=== PATIENT | female | born 1955 | race Caucasian/White ===

== ENCOUNTER → 2017-12-30 | Outpatient (CLI) | payer OTHER ==
[~2017-12-30] MED LIST: ACETAMINOPHEN325 M1 PO; AMBIEN 10 MG TA10 MG PO; ARIXTRA; ASPIR 8181 MG PO; ASPIRIN325; BIOTIN1000 MCG PO; CALCIUM-VITAMIN D PO; CARAFATE 1 GM TA1 GM PO; CELEBREX 200 M200 M1; CELEBREX 200 M200 M1 PO; CENTRUM SILVER1 EAC4 PO; COLACE100 MG; CRESTOR10 MG PO; GLUCOPHAGE XR500 MG PO; JANUMET 50-1,01 EACH PO; LIPITOR 20 MG T20 M1 PO; MAGNESIUM250 M1 PO; MELATONIN10 MG PO; MELATONIN5 M1 PO; NEURONTIN 300300 M1; OMEGA-31000 M1 PO; OXYIR5 MG; PEPCID20 MG PO; PERCOCET 5-3251 EACH; POTASSIUM CHLORIDE PO; PREVACID30 MG PO; TRILIPIX135 MG PO; VITAMINC500 PO
== END ==
LOC: M.RAD 14:41
DX: Z12.31 Encounter for screening mammogram for malignant neoplasm of breast (principal)

== ENCOUNTER 2018-02-21 00:53 | Emergency (ER) | payer OTHER ==
[~2018-02-21] VITALS: Ht 180.3 cm; Wt 72.6 kg
[~2018-02-21 00:53] MED LIST changes: -CARAFATE 1 GM TA1 GM PO; -PEPCID20 MG PO
[2018-02-21 01:20] LABS: ABSOLUTE EOSINOPHILS 0.2 thou/uL (0.0-0.7); ABSOLUTE LYMPHOCYTES 1.9 thou/uL (0.8-5.3); ABSOLUTE MONOCYTES 0.4 thou/uL (0.0-1.2); ABSOLUTE NEUTROPHILS 2.4 thou/uL (1.6-8.1); EOSINOPHILS 3.9 %; HEMATOCRIT 43.1 % (37.0-47.0); HEMOGLOBIN 14.3 gm/dL (12.0-15.0); MCH 29.8 pg (26.0-34.0); MCHC 33.2 g/dL (28.0-37.0); MCV 89.6 fL (80.0-100.0); MONOCYTES 7.6 %; MPV 7.9 fl. (7.2-11.1); NUCLEATED RBCS 0 /100WBC; PLATELET COUNT* 205 thou/uL (150-400); POLYS 48.5 %; RBC 4.81 mil/uL (4.20-5.00); RDW-CV 15.8 % (10.5-14.5)
[2018-02-21 01:23] LABS: ANION GAP 9 mmol/L (7-16); BUN 22 mg/dL (7-18); CALCIUM 9.8 mg/dL (8.5-10.1); CHLORIDE 105 mmol/L (98-107); CO2 28 mmol/L (21-32); CREATININE 0.9 mg/dL (0.6-1.3); GLUCOSE 138 mg/dL (70-99); POTASSIUM 3.4 mmol/L (3.5-5.1); SODIUM 142 mmol/L (136-145)
[2018-02-21 01:34] LABS: ALBUMIN 3.7 g/dL (3.4-5.0); ALKALINE PHOSPHATASE 77 U/L (46-116); LIPASE 292 U/L (73-393); NT-PRO BRAIN NAT PEPTIDE 73 pg/mL (<300); SGOT 18 U/L (15-37); SGPT 25 U/L (30-65); TOTAL BILIRUBIN 0.3 mg/dL (<0.1-1.0); TROPONIN-I LEVEL <0.06 ng/mL (<0.06)
[2018-02-21] MEDS ORDERED: CARAFATE 1 GM TA1 GM PO (04:03)
[2018-02-21] MEDS ORDERED: PEPCID20 MG PO (04:03)
[2018-02-21 04:22] VITALS: BP 135/81
--- NOTE | 2018-02-21 10:00 | EKG ---
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1955 Requested By: Tessa Lyons Order Number: [id number] MD: Ryland Garrett Measurements Intervals [place] Rate: 89 P: 66 [place]: 163 QRS: -24 QRSD: 87 T: 63 QT: 375 QTc: 457 Interpretive Statements Sinus rhythm Probable left atrial enlargement Borderline left axis deviation Borderline T abnormalities, anterior leads Compared to ECG 12/21/2014 12:41:07 no change Electronically Signed On 02-21-2018 10:00:17 CDT by Ryland Garrett [email or web address] <ELECTRONICALLY SIGNED> By: Ryland Garrett MD, [facility] 02/21/18 1000 010 Ryland Garrett MD, [facility] /EPI
== END 2018-02-21 04:22 | disposition home or self-care (01) ==
LOC: M.ERS 00:53
PROVIDERS: Emergency Medicine
DX: R07.89 Other chest pain (principal); E11.9 Type 2 diabetes mellitus without complications; E78.00 Pure hypercholesterolemia, unspecified

== ENCOUNTER → 2018-07-28 | Outpatient (CLI) | payer MEDICARE, OTHER ==
[~2018-07-28] MED LIST changes: +CARAFATE 1 GM TA1 GM PO; +PEPCID20 MG PO
== END ==
LOC: M.RAD 15:05
DX: M85.88 Other specified disorders of bone density and structure, other site (principal); Z78.0 Asymptomatic menopausal state

== ENCOUNTER → 2019-01-19 | Outpatient (CLI) | payer MEDICARE, OTHER | LOC: M.RAD 10:14 | DX: Z12.31 Encounter for screening mammogram for malignant neoplasm of breast (principal) ==

== ENCOUNTER → 2019-09-21 | Outpatient (CLI) | payer MEDICARE, OTHER | LOC: M.ULTRA 09:10 | DX: D25.9 Leiomyoma of uterus, unspecified (principal); R93.89 Abnormal findings on diagnostic imaging of other specified body structures ==

== ENCOUNTER → 2020-06-23 | Outpatient (CLI) | payer MEDICARE, OTHER | LOC: M.ULTRA 14:20 | PROVIDERS: ATTEND Nurse Practitioner | DX: E04.2 Nontoxic multinodular goiter (principal); R50.9 Fever, unspecified; M54.2 Cervicalgia; R53.83 Other fatigue ==

== ENCOUNTER → 2020-06-30 | Outpatient (CLI) | payer MEDICARE, OTHER ==
--- NOTE | 2020-07-01 16:06 | PATH ---
[address] [address] PATHOLOGY RPT PROCEDURE Name: JASPER GILBERT ALIYA Room: [facility].#: [id number] Admission: 06/30/20 Date of : 51 Discharge: Report #: [id number] Path Case #: [id number] Note [facility] Accession Number: [id number] TESTS RESULT FLAG UNITS REF RANGE LAB Clinician Provided Cytology Information No. of containers..01 Other (Miscellaneous) Source: LEFT THYROID DIAGNOSIS: 02 LEFT THYROID, IMAGE-GUIDED FNA: ETHESDA CATEGORY III. ATYPIA OF UNDETERMINED SIGNIFICANCE. CELLULAR POPULATION OF FOLLICULAR CELLS INCLUDING COLLOID, MULTINUCLEATED GIANT CELLS AND GRANULOMATA, SUGGESTING GRANULOMATOUS THYROIDITIS WELL FOLLICULAR CELLS WITH NUCLEAR ATYPIA/ENLARGEMENT. LIMITED BY PARTIALLY-OBSCURING GEL ARTIFACT. SEE COMMENT. THIS INTERPRETATION INCLUDES EVALUATION OF A CELL BLOCK. COMMENT A retain RNA sample will be submitted for molecular studies and will be the subject of a separate report. Signed out by: 02 Gunnar Montgomery MD, Pathologist NPI- [id number] Performed by: Misael Ramires, Studio Camera Operator ([facility]) Gross description: 01 30ML, PALE RED, 4FX 4AD /LCS 07/01/2020 1345 Local FLAG LEGEND: L-Low Normal,H-High Normal,LL-Alert Low,HH-Alert High <-Panic Low,>-Panic High,A-Abnormal,AA-Critical Abnormal Performed at: 01 [facility] [address] [facility] [address] [place] [address] Dale Burns MD, [address] [place] [id number] Gunnar Montgomery MD, Specimen Comment: A courtesy copy of this report has been sent to [phone] Specimen Comment: [phone] Specimen Comment: [id number] Specimen Comment: Report sent to / DR BANUELOS Specimen Comment: A duplicate report has been generated due to demographic updates. [facility] [address] [place] [address] PATHOLOGY RPT PROCEDURE Name: JASPER GILBERT Room: [facility] Rico#: [id number] Admission: 06/30/20 Date of : 51 Discharge: Report #: [id number] Path Case #: [id number] Performed at: 01 [facility] [place] [address] [facility] [address], [place], [place] [id number] MD Dale Burns MD Phone: [phone]
--- NOTE | 2020-07-01 16:06 | PATH ---
[address] [address] PATHOLOGY RPT PROCEDURE Name: JASPER GILBERT ALIYA [facility] [id number] Admission: 06/30/20 Date of : 51 Discharge: Report #: [id number] Path Case #: [id number] Note [facility] Accession Number: [id number] TESTS RESULT FLAG UNITS REF RANGE LAB Clinician Provided Cytology Information No. of containers..01 Other (Miscellaneous) Source: RIGHT THYROID DIAGNOSIS: 02 RIGHT THYROID, IMAGE GUIDED FNA: BETHESDA CATEGORY II. BENIGN. CONSISTENT WITH A BENIGN FOLLICULAR NODULE WITH SCATTERED MULTINUCLEATED GIANT CELLS SUGGESTING GRANULOMATOUS THYROIDITIS. THIS INTERPRETATION INCLUDES EVALUATION OF A CELL BLOCK. Signed out by: 02 Gunnar Montgomery MD, Pathologist NPI- [id number] Performed by: Misael Ramires, Stockroom Inventory Clerk ([facility]) Gross description: 01 30ML, CLEAR RED, 4 FX 4AD /LCS 07/01/2020 1534 Local FLAG LEGEND: L-Low Normal,H-High Normal,LL-Alert Low,HH-Alert High <-Panic Low,>-Panic High,A-Abnormal,AA-Critical Abnormal Performed at: [address] [place] [address] Dale Burns MD, [address] [place] [address] [address] [facility], [place] [address] Gunnar Montgomery MD, Specimen Comment: A courtesy copy of this report has been sent to [phone] Specimen Comment: [phone] Specimen Comment: Report sent to / DR BANUELOS Performed at: [address], [place], [place] [id number] MD Dale Burns MD Phone: [phone]
== END | disposition home or self-care (01) ==
LOC: M.ULTRA 08:13
PROVIDERS: ATTEND Family Medicine
DX: E04.2 Nontoxic multinodular goiter (principal); Z79.899 Other long term (current) drug therapy; Z86.73 Personal history of transient ischemic attack (TIA), and cerebral infarction without residual deficits

== ENCOUNTER → 2020-09-08 | Outpatient (CLI) | payer MEDICARE, OTHER | LOC: M.ULTRA 12:48 | PROVIDERS: ATTEND Family Medicine | DX: D25.9 Leiomyoma of uterus, unspecified (principal); R93.89 Abnormal findings on diagnostic imaging of other specified body structures; N95.0 Postmenopausal bleeding ==